=== PATIENT | male | born 1965 | race Caucasian/White ===

== ENCOUNTER 2017-10-10 05:50 | Outpatient (CLI) | payer MEDICAID ==
[2017-10-09 14:21] LABS: BASOPHILS 0.2 % (0-2); HEMATOCRIT 42.5 % (42.0-54.0); HEMOGLOBIN 14.8 g/dL (13.5-17.5); IMMATURE GRANULOCYTES 0.3 % (0-5); LYMPHOCYTES 29.3 % (15-50); MCH 33.4 pg (26.0-34.0); MCHC 34.8 g/dL (31.0-37.0); MCV 95.9 fL (80.0-100.0); MEAN PLATELET VOLUME 10.7 fL (7.4-10.4); MONOCYTES 6.1 % (2-11); NEUTROPHILS 62.1 % (40-80); PLATELET COUNT 238 10x3/uL (130-400); RBC 4.43 10x6/uL (4.20-6.10); RDW 12.3 % (11.5-14.5); WBC 13.2 10x3/uL (4.8-10.8)
[2017-10-09 14:45] LABS: CALC OSMOLALITY 274 mosm/kg (275-300); CALCIUM 9.1 mg/dL (8.5-10.1); CARBON DIOXIDE 27.4 mmol/L (21.0-32.0); CHLORIDE - SERUM 99 mmol/L (98-107); GLUCOSE 108 mg/dL (74-106); POTASSIUM - SERUM 3.9 mmol/L (3.5-5.1); SODIUM 137 mmol/L (136-145); UREA NITROGEN 12 mg/dL (7-18); eGFR NON AFRICAN AMERICAN 83 mL/min (90-120)
[2017-10-09 14:48] LABS: INR 1.02 (0.85-1.17)
[~2017-10-10] VITALS: Ht 172.7 cm; Wt 102.5 kg
[~2017-10-10 05:50] MED LIST: BUSPAR10 MG PO; INVEGA SUS117 MG/0.7 IM; K-TAB10 MEQ PO; LISINOPRIL-HCTZ1 T11 PO; METOPROLOL TART50 MG PO; PRAVACHOL40 MG PO
[2017-10-10 07:19] VITALS: BP 115/67; Ht 172.7 cm; Wt 102.5 kg
== END 2017-10-10 11:35 | disposition home or self-care (01) ==
LOC: D.OPS 05:50 → D.NM 08:00 → D.PAN 08:00 → EDSTATUS 08:00 → D.OPS 11:35
PROVIDERS: Anesthesiology; Surgery
DX: C43.4 Malignant melanoma of scalp and neck (principal); I10 Essential (primary) hypertension; Z01.810 Encounter for preprocedural cardiovascular examination; Z01.811 Encounter for preprocedural respiratory examination; Z01.812 Encounter for preprocedural laboratory examination; Z53.9 Procedure and treatment not carried out, unspecified reason

== ENCOUNTER 2020-12-01 13:40 | Inpatient (IN) | payer OTHER ==
[~2020-12-01] VITALS: Ht 171.4 cm; Wt 90.1 kg
--- NOTE | 2020-12-01 14:11 | NUR ---
RECEIVED PATIENT TO ROOM, PATIENT IS A TAD TIMID, VERY RESPECTFUL, STATED HE IS ADMITTED FOR A SINUS HEADACHE THAT HE HAS HAD FOR SEVERAL WEEKS, PATIENT ALSO HAS A BAD DRY COUGH, OFFERED WATER, PATIENT PREFERRED COFFEE, NO OTHER NEEDS RIGHT NOW, AWAITING ORDERS, CONTINUE WITH PLAN OF CARE
[2020-12-01] MEDS ORDERED: ZYPREXA5 MG PO (14:34)
[2020-12-01] MEDS ORDERED: CETIRIZINE HCL5 MG PO (14:35)
[2020-12-01] MEDS ORDERED: METFORMIN HCL500 M1 PO (14:37)
[2020-12-01] MEDS ORDERED: POTASSIUM CHLO10 ME1 PO (14:38)
[2020-12-01 14:52] VITALS: BP 140/74; BMI 36.9
[2020-12-01 17:03] VITALS: BP 109/60
[2020-12-01 20:00] VITALS: BP 115/65
[2020-12-02 04:00] VITALS: BP 127/75
[2020-12-02 06:22] LABS: BASOPHILS 0.3 % (0-2); EOSINOPHILS 0.4 % (0-7); HEMATOCRIT 35.5 % (42.0-54.0); HEMOGLOBIN 12.6 g/dL (13.5-17.5); LYMPHOCYTES 9.2 % (15-50); MCHC 35.5 g/dL (31.0-37.0); MCV 90.3 fL (80.0-100.0); MEAN PLATELET VOLUME 8.3 fL (7.4-10.4); MONOCYTES 7.1 % (2-11); PLATELET COUNT 273 10x3/uL (130-400); RBC 3.93 10x6/uL (4.20-6.10); RDW 12.5 % (11.5-14.5)
[2020-12-02 06:47] LABS: CARBON DIOXIDE 23.2 mmol/L (21.0-32.0); CREATININE - SERUM 0.8 mg/dL (0.6-1.3); GLUCOSE 123 mg/dL (74-106); POTASSIUM - SERUM 3.7 mmol/L (3.5-5.1); UREA NITROGEN 6 mg/dL (7-18); eGFR NON AFRICAN AMERICAN > 90 mL/min (90-120)
[2020-12-02 07:34] LABS: CALC OSMOLALITY 240 mosm/kg (275-300)
[2020-12-02 07:35] LABS: SODIUM 120 mmol/L (136-145)
[2020-12-02 07:36] LABS: CHLORIDE - SERUM 83 mmol/L (98-107)
[2020-12-02 08:23] VITALS: BP 135/77
--- NOTE | 2020-12-02 09:20 | NUR ---
AAOX3 THIS MORNING. ADMINISTERED MEDICATION, NO DIFFICULTIES. IS REQUESTING COFFE, EXPLAINED FLUID RESTRICTION AND NO FREE WATER. STATES UNDERSTANDING. DENIES FURTHER NEEDS. UP AMBULATING IN ROOM. WILL CONTINUE POC ASSESSMENT PERFORMED AT THIS TIME.
[2020-12-02] MEDS ORDERED: ZYPREXA5 MG PO (10:27)
--- NOTE | 2020-12-02 10:30 | NUR ---
PATIENT REMOVED IV FROM LEFT FOREARM. CATHETER TIP INTACT. CLEANED ARM. WILL RESITE IV WHEN ABLE.
[2020-12-02 12:09] VITALS: BP 129/85
--- NOTE | 2020-12-02 13:57 | NUR ---
IN BED, DENIES NEEDS. BED LOW POSITION, CALL LIGHT IN REACH. WILL CONTINUE TO MONITOR. CONCUR WITH SHIFT ASSESSMENT.
--- NOTE | 2020-12-02 15:49 | NUR ---
NEW IV STARTED TO LOWER LEFT FOREARM. ABX HUNG, TOLERATING WELL. RESTING COMFORTABLY IN BED. DENIES ANY NEEDS. BED IN LOWEST POSITION, BED RAILS X1, CALL LIGHT WITHIN REACH WILL CONTINUE POC.
[2020-12-02 17:02] VITALS: BP 111/59
--- NOTE | 2020-12-02 17:08 | NUR ---
HUNG IV ABX. RESTING IN BED WITH EYES CLOSED. BREATHING EVEN AND NON LABORED. NO S/S OF DISTRESS NOTED AT THIS TIME. WILL CONTINUE POC.
[2020-12-02 20:00] VITALS: BP 124/78
[2020-12-03] VITALS: BP 126/78
--- NOTE | 2020-12-03 03:50 | NUR ---
PATIENT DENIES PAIN, HE APPEARS TO BE RESTING WELL AT THIS TIME, HE HAS VOICE D NO CONCERNS THIS SHIFT.
[2020-12-03 04:00] VITALS: BP 147/70
[2020-12-03 07:21] LABS: BASOPHILS 0.3 % (0-2); EOSINOPHILS 0.5 % (0-7); HEMATOCRIT 33.2 % (42.0-54.0); HEMOGLOBIN 11.8 g/dL (13.5-17.5); LYMPHOCYTES 10.8 % (15-50); MCH 32.4 pg (26.0-34.0); MCHC 35.4 g/dL (31.0-37.0); MCV 91.5 fL (80.0-100.0); MEAN PLATELET VOLUME 8.5 fL (7.4-10.4); MONOCYTES 8.7 % (2-11); NEUTROPHILS 79.7 % (40-80); PLATELET COUNT 277 10x3/uL (130-400); RBC 3.63 10x6/uL (4.20-6.10); RDW 12.7 % (11.5-14.5); WBC 11.9 10x3/uL (4.8-10.8)
[2020-12-03 07:22] LABS: CALC OSMOLALITY 254 mosm/kg (275-300); CALCIUM 8.8 mg/dL (8.5-10.1); CARBON DIOXIDE 24.1 mmol/L (21.0-32.0); CHLORIDE - SERUM 92 mmol/L (98-107); CREATININE - SERUM 0.8 mg/dL (0.6-1.3); GLUCOSE 107 mg/dL (74-106); POTASSIUM - SERUM 3.8 mmol/L (3.5-5.1); SODIUM 128 mmol/L (136-145); UREA NITROGEN 6 mg/dL (7-18); eGFR NON AFRICAN AMERICAN > 90 mL/min (90-120)
--- NOTE | 2020-12-03 07:37 | NUR ---
AWAKE AND ALERT. ORIENTED X3. NO C/O AT THIS TIME. UP TO BR PER SELF. VOIDED WITHOUT DIFFICULTY. LUNGS ARE CLEAR BIALTERALLY, NO COUGH NOTED. SKIN IS INTACT WITHOUT REDNESS. IV TO LEFT FOREARM IS PATENT WITHOUT REDNESS AT INSERTION SITE. DENIES NEEDS.
[2020-12-03 08:27] VITALS: BP 118/67
--- NOTE | 2020-12-03 09:30 | NUR ---
ATE MOST OF BREAKFAST. TOOK AM MEDS WITHOUT DIFFICULTY. DENIES NEEDS.
--- NOTE | 2020-12-03 10:30 | NUR ---
UP TO SHOWER WITH SBA. DENIES NEEDS.
--- NOTE | 2020-12-03 12:30 | NUR ---
LUNCH SERVED IN ROOM. FEEDS SELF. ATE MOST OF TRAY.
[2020-12-03 12:37] VITALS: BP 141/84
[2020-12-03 16:50] VITALS: BP 123/62
--- NOTE | 2020-12-03 16:53 | NUR ---
CALLED DR. DOSHI RE TEMP. DOWN TO 99.7 AT THIS TIME. NO NEW ORDERS RECEIVED.
--- NOTE | 2020-12-03 18:38 | NUR ---
ATE ONLY ABOUT 20% OF MEAL. DENIES NEEDS. CXR COMPLETED. CONTINUES TO USE IS INSTRUCTED.
[2020-12-03 20:39] VITALS: BP 138/60
--- NOTE | 2020-12-04 02:27 | NUR ---
PATIENT DENIES PAIN, HE HAS APPEARED TO REST WELL THIS SHIFT, HE IS CURRENTLY RESTING IN BED WITH HIS EYES CLOSED.
[2020-12-04 06:14] LABS: CALC OSMOLALITY 254 mosm/kg (275-300); CALCIUM 8.9 mg/dL (8.5-10.1); CARBON DIOXIDE 25.1 mmol/L (21.0-32.0); CHLORIDE - SERUM 94 mmol/L (98-107); CREATININE - SERUM 0.8 mg/dL (0.6-1.3); GLUCOSE 105 mg/dL (74-106); POTASSIUM - SERUM 3.5 mmol/L (3.5-5.1); SODIUM 128 mmol/L (136-145); UREA NITROGEN 6 mg/dL (7-18); eGFR NON AFRICAN AMERICAN > 90 mL/min (90-120)
[2020-12-04 07:37] LABS: BASOPHILS 0.9 % (0-2); EOSINOPHILS 2.1 % (0-7); HEMATOCRIT 31.8 % (42.0-54.0); HEMOGLOBIN 11.1 g/dL (13.5-17.5); LYMPHOCYTES 11.4 % (15-50); MCH 32.3 pg (26.0-34.0); MCV 92.3 fL (80.0-100.0); MEAN PLATELET VOLUME 8.1 fL (7.4-10.4); MONOCYTES 9.4 % (2-11); NEUTROPHILS 76.2 % (40-80); PLATELET COUNT 290 10x3/uL (130-400); RBC 3.44 10x6/uL (4.20-6.10); RDW 12.9 % (11.5-14.5)
[2020-12-04 08:48] VITALS: BP 138/87
[2020-12-04 11:42] VITALS: Ht 171.4 cm; Wt 90.1 kg
[2020-12-04 11:56] VITALS: BP 121/68
--- NOTE | 2020-12-04 15:20 | NUR ---
I have reviewed this patient and I concur with the Shift Assessment completed by the Licensed Practical Nurse today this shift.
[2020-12-04 16:54] VITALS: BP 129/64
[2020-12-04 20:00] VITALS: BP 162/58
[2020-12-05 05:38] LABS: BASOPHILS 0.6 % (0-2); EOSINOPHILS 4.5 % (0-7); HEMATOCRIT 31.3 % (42.0-54.0); HEMOGLOBIN 10.8 g/dL (13.5-17.5); LYMPHOCYTES 12.8 % (15-50); MCH 32.2 pg (26.0-34.0); MCHC 34.4 g/dL (31.0-37.0); MCV 93.4 fL (80.0-100.0); MEAN PLATELET VOLUME 7.6 fL (7.4-10.4); MONOCYTES 9.3 % (2-11); NEUTROPHILS 72.8 % (40-80); PLATELET COUNT 314 10x3/uL (130-400); RBC 3.35 10x6/uL (4.20-6.10); WBC 11.3 10x3/uL (4.8-10.8)
[2020-12-05 06:03] LABS: CALC OSMOLALITY 262 mosm/kg (275-300); CALCIUM 8.9 mg/dL (8.5-10.1); CHLORIDE - SERUM 98 mmol/L (98-107); CREATININE - SERUM 0.7 mg/dL (0.6-1.3); GLUCOSE 106 mg/dL (74-106); POTASSIUM - SERUM 3.6 mmol/L (3.5-5.1); SODIUM 132 mmol/L (136-145); UREA NITROGEN 6 mg/dL (7-18); eGFR NON AFRICAN AMERICAN > 90 mL/min (90-120)
--- NOTE | 2020-12-05 07:30 | NUR ---
PT AWAKE AND IN THE BATHROOM HAVING A BM. CL IN REACH. NO NEEDS AT THIS TIME. WCTM
[2020-12-05 09:04] VITALS: BP 118/67; BP 157/75
--- NOTE | 2020-12-05 11:00 | NUR ---
PT REQUESTING MORE COFFEE. SPOKE WITH DR DOSHI AND GOT THE FLUID RESTRICTION LIFTED TO 1000 ML PER DAY. PT RECIEVED ANOTHER CUP OF COFFEE. PT ASSISTED WITH SHOWER. LINENS CHANGED. WCTM
[2020-12-05 13:56] VITALS: BP 144/94
--- NOTE | 2020-12-05 17:08 | NUR ---
PT KNEELING ON THE SIDE OF BED PRAYING. CL IN REACH. REQUESTING A SM GLASS OF WATER. PT VERBALIZES UNDERSTANDING ABOUT THE FLUID RESTRICTIONS. PHONE PLUGGED IN SO HE CAN CALL HIS [facility]. MELECIO
[2020-12-05 18:30] VITALS: BP 163/86
--- NOTE | 2020-12-05 20:00 | NUR ---
RESTING QUEITLY WITH NO DISTRESS NOTED. IV TO LFA WITHOUT REDNESS OR EDEMA NOTED. NO COMPLAINTS OF DISCOMFORT. CL IN REACH
[2020-12-06 05:00] VITALS: BP 130/68
[2020-12-06 06:20] LABS: BASOPHILS 0.7 % (0-2); EOSINOPHILS 7.4 % (0-7); HEMOGLOBIN 11.4 g/dL (13.5-17.5); LYMPHOCYTES 22.2 % (15-50); MCHC 34.4 g/dL (31.0-37.0); MCV 93.2 fL (80.0-100.0); MEAN PLATELET VOLUME 7.5 fL (7.4-10.4); MONOCYTES 8.1 % (2-11); NEUTROPHILS 61.6 % (40-80); PLATELET COUNT 344 10x3/uL (130-400); RBC 3.55 10x6/uL (4.20-6.10); RDW 12.8 % (11.5-14.5); WBC 8.6 10x3/uL (4.8-10.8)
[2020-12-06 06:45] LABS: CALC OSMOLALITY 267 mosm/kg (275-300); CALCIUM 8.7 mg/dL (8.5-10.1); CARBON DIOXIDE 25.2 mmol/L (21.0-32.0); CHLORIDE - SERUM 101 mmol/L (98-107); CREATININE - SERUM 0.7 mg/dL (0.6-1.3); GLUCOSE 98 mg/dL (74-106); SODIUM 135 mmol/L (136-145); UREA NITROGEN 6 mg/dL (7-18); eGFR NON AFRICAN AMERICAN > 90 mL/min (90-120)
[2020-12-06 06:51] LABS: POTASSIUM - SERUM 4.3 mmol/L (3.5-5.1)
--- NOTE | 2020-12-06 08:59 | NUR ---
PT REQUESTING AND RECIEVED COFFEE WITH BREAKFAST. CL IN REACH. NO NEEDS AT THIS TIME. WCTM
[2020-12-06 09:38] VITALS: BP 146/90
[2020-12-06 12:04] VITALS: BP 144/90
[2020-12-06 17:32] VITALS: BP 155/90
[2020-12-07 04:00] VITALS: BP 138/76
[2020-12-07 08:51] VITALS: BP 140/84
--- NOTE | 2020-12-07 09:00 | NUR ---
ASSESSMENT PER FLOW SHEET. PATIENT IS WITHOUT DISTRESS.MONITOR FOR NEEDS.CALL LIGHT IN REACH
[2020-12-07 12:37] VITALS: BP 148/91
[2020-12-07 14:23] LABS: BASOPHILS 0.8 % (0-2); EOSINOPHILS 5.4 % (0-7); HEMATOCRIT 36.4 % (42.0-54.0); HEMOGLOBIN 12.3 g/dL (13.5-17.5); LYMPHOCYTES 27.2 % (15-50); MCH 31.7 pg (26.0-34.0); MCHC 33.9 g/dL (31.0-37.0); MCV 93.5 fL (80.0-100.0); MEAN PLATELET VOLUME 6.7 fL (7.4-10.4); MONOCYTES 8.3 % (2-11); NEUTROPHILS 58.3 % (40-80); PLATELET COUNT 356 10x3/uL (130-400); RBC 3.89 10x6/uL (4.20-6.10); RDW 12.9 % (11.5-14.5); WBC 8.6 10x3/uL (4.8-10.8)
[2020-12-07 14:34] LABS: CALCIUM 9.1 mg/dL (8.5-10.1); CARBON DIOXIDE 26.8 mmol/L (21.0-32.0); CHLORIDE - SERUM 99 mmol/L (98-107); GLUCOSE 107 mg/dL (74-106); SODIUM 134 mmol/L (136-145)
[2020-12-07 14:36] LABS: CALC OSMOLALITY 265 mosm/kg (275-300); CREATININE - SERUM 0.9 mg/dL (0.6-1.3); UREA NITROGEN 8 mg/dL (7-18); eGFR NON AFRICAN AMERICAN > 90 mL/min (90-120)
[2020-12-07] MEDS ORDERED: OMNICEF300 MG PO (15:40)
[2020-12-07 18:03] VITALS: BP 158/95
--- NOTE | 2020-12-07 19:45 | NUR ---
RECEIVED BEDSIDE REPORT. PT LAYING IN BED A&O X4. PIV TO RIGHT HAND PATENT AND INFUSING, NO REDNESS OR SWELLING. TELEMETRY IN PLACE, 56 SB. PT ABLE TO AMBULATE AD DARIO. EDUCATED PT ON CL AND NEEDS, VERBALIZED UNDERSTANDING. BED LOW, CL IN REACH.
[2020-12-07 20:00] VITALS: BP 140/81
[2020-12-08 04:00] VITALS: BP 131/80
[2020-12-08 08:36] VITALS: BP 130/91
--- NOTE | 2020-12-08 08:38 | NUR ---
ASSESSMENT PER FLOW SHEET. PATIENT IS WITHOUT DISTRESS.MONITOR FOR NEEDS.CALL LIGHT IN REACH
[2020-12-08 12:05] VITALS: BP 156/95
--- NOTE | 2020-12-08 13:10 | NUR ---
DISCHARGE INSTRUCTIONS,STATES UNDERSTANDING. IV DCD X2 WITH CATH TIP INTACT. WAITING ON RIDE FOR TRANSPORT
--- NOTE | 2020-12-08 13:11 | MORECARE ---
CASE MANAGEMENT DISCHARGE SUMMARY PATIENT: TOSHIA HUBBARD UNIT: [id number] ADM DATE: 12/01/20 AGE: 55 : 65 SEX: M ROOM/BED: D.2208 AUTHOR: CHELSEA,DOC PHYSICIAN: REFERRING PHYSICIAN: CANDELARIA DOSHI MD DATE OF SERVICE: 12/08/20 Case Management Discharge Planning Summary DCP REVIEW SUMMARY ANTICIPATED D/C DATE: EXPECTED LOS : CASE STATUS: DCP Initiated INITIAL REVIEW: 12/01/2020 INITIAL REVIEWER: Cheryl Leal FINAL DISCHARGE DISPOSITION: : FINAL REVIEWER: FINAL REVIEW DATE: DCP Focus Questions & Answers QUESTION: ANSWER : PATIENT: TOSHIA HUBBARD ENCOUNTER: [id number] MEDICAL RECORD#: [id number] ADMISSION DATE: 12/01/2020 DISCHARGE DATE: ATTENDING MD: CANDELARIA CANAS : AGE: 55 MARITAL STATUS: S DC PLAN ID: [id number] FACILITY: [facility] PRINTED ON: 12/08/20 13:11 CT All edits/amendments must be made on the electronic document DICTATION DATE: 12/08/20 1311 CUSTOM FEED MILL OPERATOR HELPER: DM 12/08/20 1311 RPT#: [id number] DC DATE: STATUS: ADM IN [facility] [address] [place] [address] END OF REPORT
--- NOTE | 2020-12-08 13:19 | NUR ---
CALL TO YOLANDA AT [facility] TO GIVE REPORT. SHE WILL RETURN CALL IN A MINUTE. SHE IS ON PHONE WITH ANOTHER FACILITY
--- NOTE | 2020-12-08 13:25 | MORECARE ---
CASE MANAGEMENT DISCHARGE SUMMARY PATIENT: TOSHIA HUBBARD UNIT: [id number] ADM DATE: 12/01/20 AGE: 55 : 65 SEX: M ROOM/BED: D.2208 AUTHOR: CHELSEA,DOC PHYSICIAN: REFERRING PHYSICIAN: CANDELARIA DOSHI MD DATE OF SERVICE: 12/08/20 Case Management Discharge Planning Summary COMMENTS ENTERED DATE: 12/08/20 13:14 CT COMMENT TYPE: Discharge Planning REVIEWER: Cheryl Leal I SPOKE WITH YOLANDA MUELLER WITH [facility], THEY WILL PICK HIM UP AT 1:45 TODAY, I HAVE FAXED CLINICALS TO HER AND THERE IS NOTHING FROM A CM STANDPOINT THAT NEEDS TO BE DONE. CM TO FOLLOW NEEDED DCP REVIEW SUMMARY ANTICIPATED D/C DATE: EXPECTED LOS : CASE STATUS: DCP Initiated INITIAL REVIEW: 12/01/2020 INITIAL REVIEWER: Cheryl Leal FINAL DISCHARGE DISPOSITION: : FINAL REVIEWER: FINAL REVIEW DATE: DCP Focus Questions & Answers QUESTION: ANSWER : PATIENT: TOSHIA HUBBARD ENCOUNTER: [id number] MEDICAL RECORD#: [id number] ADMISSION DATE: 12/01/2020 DISCHARGE DATE: ATTENDING MD: CANDELARIA CANAS : AGE: 55 MARITAL STATUS: S DC PLAN ID: [id number] FACILITY: [facility] PRINTED ON: 12/08/20 13:24 CT All edits/amendments must be made on the electronic document DICTATION DATE: 12/08/20 1324 CURRICULUM ASSISTANT: MARY 12/08/20 1324 RPT#: [id number] DC DATE: STATUS: ADM IN [facility] [address] [place] [address] END OF REPORT
--- NOTE | 2020-12-08 13:27 | NUR ---
CALL BACK FROM YOLANDA. REPORT GIVEN TO HER.
--- NOTE | 2020-12-08 14:37 | NUR ---
LEFT UNT FOR TRANSPORT TO [facility]
--- NOTE | 2020-12-08 14:38 | MORECARE ---
CASE MANAGEMENT DISCHARGE SUMMARY PATIENT: TOSHIA HUBBARD UNIT: [id number] ADM DATE: 12/01/20 AGE: 55 : 65 SEX: M ROOM/BED: D.2208 AUTHOR: CHELSEA,DOC PHYSICIAN: REFERRING PHYSICIAN: CANDELARIA DOSHI MD DATE OF SERVICE: 12/08/20 Case Management Discharge Planning Summary COMMENTS ENTERED DATE: 12/08/20 13:14 CT COMMENT TYPE: Discharge Planning REVIEWER: Cheryl Leal I SPOKE WITH YOLANDA MUELLER WITH [facility], THEY WILL PICK HIM UP AT 1:45 TODAY, I HAVE FAXED CLINICALS TO HER AND THERE IS NOTHING FROM A CM STANDPOINT THAT NEEDS TO BE DONE. CM TO FOLLOW NEEDED DCP REVIEW SUMMARY ANTICIPATED D/C DATE: EXPECTED LOS : CASE STATUS: DCP Initiated INITIAL REVIEW: 12/01/2020 INITIAL REVIEWER: Cheryl Leal FINAL DISCHARGE DISPOSITION: : FINAL REVIEWER: FINAL REVIEW DATE: DCP Focus Questions & Answers QUESTION: ANSWER : PATIENT: TOSHIA HUBBARD ENCOUNTER: [id number] MEDICAL RECORD#: [id number] ADMISSION DATE: 12/01/2020 DISCHARGE DATE: 12/08/2020 ATTENDING MD: CANDELARIA CANAS : AGE: 55 MARITAL STATUS: S DC PLAN ID: [id number] FACILITY: [facility] PRINTED ON: 12/08/20 14:38 CT All edits/amendments must be made on the electronic document DICTATION DATE: 12/08/201437 FIRE APPARATUS ENGINEER: MARY 12/08/20 143 RPT#: [id number] DC DATE:12/08/20 STATUS: DIS IN [facility] [address] [place] [address] END OF REPORT
--- NOTE | 2020-12-09 12:10 | MORECARE ---
CASE MANAGEMENT DISCHARGE SUMMARY PATIENT: TOSHIA HUBBARD UNIT: [id number] ADM DATE: 12/01/20 AGE: 55 : 65 SEX: M ROOM/BED: D.2208 AUTHOR: CHELSEA,DOC PHYSICIAN: REFERRING PHYSICIAN: CANDELARIA DOSHI MD DATE OF SERVICE: 12/09/20 Case Management Discharge Planning Summary COMMENTS ENTERED DATE: 12/08/20 13:14 CT COMMENT TYPE: Discharge Planning REVIEWER: Cheryl Leal I SPOKE WITH YOLANDA ERVIN WITH [facility], THEY WILL PICK HIM UP AT 1:45 TODAY, I HAVE FAXED CLINICALS TO HER AND THERE IS NOTHING FROM A CM STANDPOINT THAT NEEDS TO BE DONE. CM TO FOLLOW NEEDED DCP REVIEW SUMMARY ANTICIPATED D/C DATE: EXPECTED LOS : 0 CASE STATUS: DCP Complete INITIAL REVIEW: 12/01/2020 INITIAL REVIEWER: Cheryl Leal FINAL DISCHARGE DISPOSITION: : FINAL REVIEWER: Cheryl Leal FINAL REVIEW DATE: 12/09/2020 DCP Focus Questions & Answers QUESTION: ANSWER : PATIENT: TOSHIA HUBBARD ENCOUNTER: [id number] MEDICAL RECORD#: [id number] ADMISSION DATE: 12/01/2020 DISCHARGE DATE: 12/08/2020 ATTENDING MD: CANDELARIA CANAS : AGE: 55 MARITAL STATUS: S DC PLAN ID: [id number] FACILITY: [facility] PRINTED ON: 12/09/20 12:10 CT All edits/amendments must be made on the electronic document DICTATION DATE: 12/09/20 121 SHADE CUTTER: DM 12/09/20 1210 RPT#: [id number] DC DATE:12/08/20 STATUS: DIS IN [facility] [address] [place] [address] END OF REPORT
--- NOTE | 2020-12-10 13:20 | MORECARE ---
CASE MANAGEMENT DISCHARGE SUMMARY PATIENT: TOSHIA HUBBARD UNIT: [id number] ADM DATE: 12/01/20 AGE: 55 : 65 SEX: M ROOM/BED: D.2208 AUTHOR: CHELSEA,DOC PHYSICIAN: REFERRING PHYSICIAN: CANDELARIA DOSHI MD DATE OF SERVICE: 12/10/20 Case Management Discharge Planning Summary COMMENTS ENTERED DATE: 12/08/20 13:14 CT COMMENT TYPE: Discharge Planning REVIEWER: Cheryl Leal I SPOKE WITH YOLANDA ERVIN WITH [facility], THEY WILL PICK HIM UP AT 1:45 TODAY, I HAVE FAXED CLINICALS TO HER AND THERE IS NOTHING FROM A CM STANDPOINT THAT NEEDS TO BE DONE. CM TO FOLLOW NEEDED DCP REVIEW SUMMARY ANTICIPATED D/C DATE: EXPECTED LOS : 0 CASE STATUS: DCP Complete INITIAL REVIEW: 12/01/2020 INITIAL REVIEWER: Cheryl Leal FINAL DISCHARGE DISPOSITION: : FINAL REVIEWER: Cheryl Leal FINAL REVIEW DATE: 12/09/2020 DCP Focus Questions & Answers QUESTION: ANSWER : PATIENT: TOSHIA HUBBARD ENCOUNTER: [id number] MEDICAL RECORD#: [id number] ADMISSION DATE: 12/01/2020 DISCHARGE DATE: 12/08/2020 ATTENDING MD: CANDELARIA CANAS : AGE: 55 MARITAL STATUS: S DC PLAN ID: [id number] FACILITY: [facility] PRINTED ON: 12/10/20 13:20 CT All edits/amendments must be made on the electronic document DICTATION DATE: 12/10/20 132 MYSQL DATABASE DEVELOPER: DM 12/10/20 1320 RPT#: [id number] DC DATE:12/08/20 STATUS: DIS IN [facility] [address] [facility] [place] [address] END OF REPORT
== END 2020-12-08 14:37 | disposition home or self-care (01) | DRG 194 ==
LOC: D.MS 13:40
PROVIDERS: ADMIT Family Medicine; ATTEND Family Medicine
DX: J18.9 Pneumonia, unspecified organism (principal); E87.1 Hypo-osmolality and hyponatremia; I10 Essential (primary) hypertension; F45.8 Other somatoform disorders